=== PATIENT | male | born 1995 | race Caucasian/White ===

== ENCOUNTER 2018-01-14 20:09 | Emergency (ER) | payer OTHER, SELFPAY ==
[2018-01-14 20:15] VITALS: BP 159/90; PULSE 72; RESP 18; TEMP 36.8; O2SAT 100; BMI 22.8
--- NOTE | 2018-01-14 21:39 | ED_ITS ---
HPI - Extremity Problem <JONO Cade - Last Filed: 01/14/18 23:03> General Chief complaint: Extremity Problem,Nontraumatic Stated complaint: NUMBNESS OF LEGS HEADACHES JOINT ACHES LOST OF LEONEL Time Seen by Provider: 01/14/18 21:01 Source: patient Mode of arrival: ambulatory Limitations: no limitations History of Present Illness HPI Narrative: 22-year-old healthy male that is an everyday smoker here for complaint of having periodic episodes of tingling and numbness to bilateral lower extremities. he also reports having a periodic lower back pain as well. He denies any trauma to the lower back or to the pelvic girdle area. He denies any stressors or relievers of his symptoms. He also reports he has had increased tiredness over the past 3 months with some weight loss. He denies any fevers or chills. He is ambulatory to the emergency room. No loss of bladder or bowel control. he also reports that he has had some a small round areas of hair loss to his head and believes that he has alopecia areata a is currently waiting a dermatology visit next week for this. MD Complaint: other Related Data Home Medications Medication Instructions Recorded Confirmed MULTIVITAMIN 1 cap PO QDAY #0 cap 11/26/12 Previous Rx's Medication Instructions Recorded cephalexin [Keflex] 500 mg PO QID #28 cap 01/30/16 Allergies Allergy/AdvReac Type Severity Reaction Status Date / Time No Known Drug Allergies Allergy Verified 01/14/18 20:25 Review of Systems <JONO Cade - Last Filed: 01/14/18 23:03> Constitutional Denies chills, Denies fever(s), Denies lethargy and Denies weakness Eyes Denies change in vision, Denies eye discharge, Denies irritation and Denies loss of vision ENT Ears, Nose, Mouth, and Throat: Denies change in voice, Denies neck pain and Denies sore throat Cardiovascular Denies chest pain, Denies irregular heart rhythm, Denies lightheadedness, Denies palpitations, Denies dyspnea, Denies dyspnea on exertion and Denies orthopnea Respiratory Denies cough, Denies dyspnea, Denies dyspnea on exertion and Denies wheezing Gastrointestinal Gastrointestinal: Denies abdominal pain, Denies change in bowel habits, Denies diarrhea, Denies nausea and Denies vomiting Genitourinary Denies hematuria, Denies flank pain, Denies urinary incontinence and Denies urinary urgency Musculoskeletal Denies neck pain Comments: Tingling to bilateral lower extremities intermittentl Integumentary/Breasts Denies pruritus, Denies erythema, Denies rash and Denies wounds Neurologic Denies confusion, Denies loss of vision and Denies weakness Psychiatric Denies anxiety, Denies confusion, Denies depression, Denies homicidal ideation and Denies suicidal ideation Endocrine Denies palpitations Hematologic/Lymphatic Denies easy bruising Allergic/Immunologic Denies wheezing Exam <JONO Cade - Last Filed: 01/14/18 23:03> Initial Vital Signs Initial Vital Signs: Vital Signs Temperature 98.3 F 01/14/18 20:15 Pulse Rate 72 01/14/18 20:15 Respiratory Rate 18 01/14/18 20:15 Blood Pressure 159/90 H 01/14/18 20:15 Pulse Oximetry 100 01/14/18 20:15 Const General: cooperative and well developed Nutritional Appearance: well nourished Orientation: alert, awake, oriented x3 and not confused [facility] Head: normocephalic and atraumatic Ears: external ears normal and TM's normal bilaterally Nose: external nose normal and No nasal discharge Face and sinus: sinuses nontender, face symmetric, no sinus tenderness and No dry mucous membranes Mouth: oral mucosae normal and moist mucous membranes Teeth and gingiva: dentition normal Throat: tonsils normal and uvula midline Eyes General: appearance normal, both eyes and all related structures Eyelids: eyelids normal Conjunctivae: conjunctivae normal Sclera: sclerae normal Pupils: PERRL EOM: EOM intact bilaterally Neck Neck: normal visual inspection, trachea midline, No lymphadenopathy, No midline deformity and No JVD Lymphatic: No lymphedema Chest Chest: normal inspection of the chest Resp Effort & Inspection: normal respiratory effort, able to speak in complete sentences, no respiratory distress and no use of accessory muscles Auscultation: clear to auscultation bilaterally, no rales, no rhonchi and no wheezes Cardio Rate: regular rate Rhythm: regular rhythm Heart Sounds: no click, no gallops, no murmurs and no rubs Pulses: normal peripheral pulses GI Inspection: non-distended Palpation: soft, no hepatosplenomegaly, No guarding, No pulsatile mass and No tender Auscultation: normal bowel sounds Back/Spine/Pelvis Back: No CVA tenderness Cervical Spine: cervical ROM normal and No pain with cervical ROM Thoracic/Lumbar Spine: thoracic and lumbar spine normal to inspection Other: Lower back pain Skin General: no rashes or lesions noted, No jaundice and No petechiae Neuro General: alert, oriented x3, gait normal and no focal motor deficits Speech: speech normal Other: intermittent tingling and numbness to bilateral lower extrem Extrem General: full ROM, no clubbing, cyanosis or edema, no pedal edema and no calf tenderness Psych Appearance: well kempt Mental Status: mental status grossly normal Attitude: cooperative Thought Content: normal and suicidality Judgment: judgment good <Cally Patel DO - Last Filed: 01/15/18 18:37> Initial Vital Signs Initial Vital Signs: Vital Signs Temperature 98.3 F 01/14/18 20:15 Pulse Rate 72 01/14/18 20:15 Respiratory Rate 18 01/14/18 20:15 Blood Pressure 159/90 H 01/14/18 20:15 Pulse Oximetry 100 01/14/18 20:15 Course <JONO Cade - Last Filed: 01/14/18 23:03> Orders Ordered: ED Orders 01/14/18 21:13 EKG-12 Lead Stat 01/14/18 22:15 Complete Blood Count AUTO DIFF Stat Comprehensive Metabolic Panel Stat 01/14/18 22:53 Thyroid Stimulating Hormone Stat Vital Signs - 8 hr 01/14/18 20:15 Temperature 98.3 F Pulse Rate 72 Respiratory Rate 18 Blood Pressure 159/90 H Pulse Oximetry 100 <DO Jerel Hoang Last Filed: 01/15/18 18:37> Orders Ordered: ED Orders 01/14/18 21:13 EKG-12 Lead Stat 01/14/18 22:15 Complete Blood Count AUTO DIFF Stat Comprehensive Metabolic Panel Stat 01/14/18 22:53 Thyroid Stimulating Hormone Stat Vital Signs - 8 hr 01/14/18 20:15 Temperature 98.3 F Pulse Rate 72 Respiratory Rate 18 Blood Pressure 159/90 H Pulse Oximetry 100 MDM - Extremity (Nontraumatic) <JONO Cade - Last Filed: 01/14/18 23:03> Lab Data Result diagrams: 01/14/18 22:15 01/14/18 22:15 Lab Results 01/14/18 01/14/18 01/14/18 Range/Units 22:15 22:15 22:15 WBC 9.1 (4.5-11.0) X10^3/uL RBC 4.68 (4.5-5.9) X10^6/uL Hgb 14.9 (13.5-17.5) g/dL Hct 43.4 (41-53) % MCV 92.8 (80-100) fL MCH 32.0 (26-34) PG MCHC 34.4 (30-36) % RDW 12.9 (11.6-14.8) % Plt Count 197 (150-400) X10^3/uL Neut % (Auto) 45.5 L (50-75) % Lymph % (Auto) 36.9 (25-40) % Hendry % (Auto) 9.4 (3-14) % Eos % (Auto) 7.5 H (2-4) % Baso % (Auto) 0.7 (0-2) % Neut # (Auto) 4100 (8649-0095) /uL Sodium 141 (137-145) mmol/L Potassium 3.6 (3.4-5.1) mmol/L Chloride 102 (98-107) mmol/L Carbon Dioxide 27 (22-32) mmol/L BUN 20 (9-20) mg/dL Creatinine 0.80 (0.66-1.25) mg/dL Estimated GFR > 60.0 (>60) mL/min BUN/Creatinine Ratio 25.0 H (6-22) Glucose 100 (70-100) mg/dL Calcium 9.4 (8.4-10.2) mg/dL Total Bilirubin 0.3 (0.2-1.3) mg/dL AST 30 (17-59) IU/L ALT 30 (21-72) IU/L Alkaline Phosphatase 62 (38-126) U/L Total Protein 7.5 (6.3-8.2) g/dL Albumin 4.6 (3.5-5.0) g/dL Globulin 2.9 (1.7-4.1) g/dL Albumin/Globulin Ratio 1.6 (1.0-2.8) TSH 4.91 H (0.47-4.68) uIU/mL ECG Data Interpretation: EKG shows sinus bradycardia with ventricular rate of 56. No ST elevation or depression. No ectopy. Pr a little of 177. QRS duration 91. QT of 383. MDM Narrative Medical decision making narrative: CBC and Chem panel were obtained were unremarkable. EKG shows sinus rhythm with no ST elevation or depression. TSH was ordered however is still pending and will have patient follow up with primary care provider for further evaluation and results. If continued symptoms of tingling to his bilateral lower extremities may need advanced imaging to rule out lumbar radiculopathy or other complications. patient struck to follow up with primary care provider the next few days. For any worsening symptoms return to the emergency room. <Cally Patel, - Last Filed: 01/15/18 18:37> Lab Data Lab Results 01/14/18 01/14/18 01/14/18 Range/Units 22:15 22:15 22:15 WBC 9.1 (4.5-11.0) X10^3/uL RBC 4.68 (4.5-5.9) X10^6/uL Hgb 14.9 (13.5-17.5) g/dL Hct 43.4 (41-53) % MCV 92.8 (80-100) fL MCH 32.0 (26-34) PG MCHC 34.4 (30-36) % RDW 12.9 (11.6-14.8) % Plt Count 197 (150-400) X10^3/uL Neut % (Auto) 45.5 L (50-75) % Lymph % (Auto) 36.9 (25-40) % Hendry % (Auto) 9.4 (3-14) % Eos % (Auto) 7.5 H (2-4) % Baso % (Auto) 0.7 (0-2) % Neut # (Auto) 4100 (3480-1700) /uL Sodium 141 (137-145) mmol/L Potassium 3.6 (3.4-5.1) mmol/L Chloride 102 (98-107) mmol/L Carbon Dioxide 27 (22-32) mmol/L BUN 20 (9-20) mg/dL Creatinine 0.80 (0.66-1.25) mg/dL Estimated GFR > 60.0 (>60) mL/min BUN/Creatinine Ratio 25.0 H (6-22) Glucose 100 (70-100) mg/dL Calcium 9.4 (8.4-10.2) mg/dL Total Bilirubin 0.3 (0.2-1.3) mg/dL AST 30 (17-59) IU/L ALT 30 (21-72) IU/L Alkaline Phosphatase 62 (38-126) U/L Total Protein 7.5 (6.3-8.2) g/dL Albumin 4.6 (3.5-5.0) g/dL Globulin 2.9 (1.7-4.1) g/dL Albumin/Globulin Ratio 1.6 (1.0-2.8) TSH 4.91 H (0.47-4.68) uIU/mL Discharge Plan Departure Patient Disposition: Home Clinical Impression: Numbness and tingling of lower extremity Discharge Date/Time: 01/15/18 00:28 Interventions: ED Discharge Assessment Last Done: 01/15/18 00:09 Instructions: DI for Numbness/tingling Activity Restrictions/Additional Instructions: laboratory results and EKG today were unremarkable. Follow up with primary care provider in the next couple of days for re-evaluation. Thyroid study was obtained and is pending follow up with her primary care provider for results. if continued symptoms of numbness and tingling is to your lower extremities advanced imaging such as MRI might be needed for further evaluation For any worsening symptoms return to the emergency room. Prescriptions: No Action MULTIVITAMIN 1 cap PO QDAY Qty: 0 RF: 0 cephalexin [Keflex] 500 MG capsule 500 mg PO QID Qty: 28 RF: 0 Referrals: Henok Lomax MD [Primary Care Provider] - <Cally Patel DO - Last Filed: 01/15/18 18:37> Cosign ED Attending Cristyature Attestation: I was immediately available in the department for consultation. Documentation has been reviewed. I agree with assessment and plan.
[2018-01-14 22:35] LABS: Add Manual Diff / Slide Review NO; Basophils Percent Auto 0.7 % (0-2); Eosinophils Percent Auto 7.5 % (2-4); Hematocrit 43.4 % (41-53); Hemoglobin 14.9 g/dL (13.5-17.5); Lymphocytes Percent Auto 36.9 % (25-40); Mean Corpuscular HGB Conc 34.4 % (30-36); Mean Corpuscular Volume 92.8 fL (80-100); Monocytes Percent Auto 9.4 % (3-14); Neutrophils Absolute Auto 4100 /uL (3000-5900); Neutrophils Percent Auto 45.5 % (50-75); Platelet Count 197 X10^3/uL (150-400); Red Blood Cell Count 4.68 X10^6/uL (4.5-5.9); Red Cell Distribution Width 12.9 % (11.6-14.8); White Blood Cell Count 9.1 X10^3/uL (4.5-11.0)
[2018-01-14 22:48] LABS: Alanine Aminotransferase 30 IU/L (21-72); Albumin 4.6 g/dL (3.5-5.0); Albumin Globulin Ratio 1.6 (1.0-2.8); Alkaline Phosphatase 62 U/L (38-126); Aspartate Aminotransferase 30 IU/L (17-59); Bilirubin Total 0.3 mg/dL (0.2-1.3); Blood Urea Nitrogen 20 mg/dL (9-20); Calcium 9.4 mg/dL (8.4-10.2); Carbon Dioxide 27 mmol/L (22-32); Chloride 102 mmol/L (98-107); Estimated Glomerular Filt Rate > 60.0 mL/min (>60); Globulin 2.9 g/dL (1.7-4.1); Glucose 100 mg/dL (70-100); HEMOLYSIS < 15 (0-50); Potassium 3.6 mmol/L (3.4-5.1); Sodium 141 mmol/L (137-145); Total Protein 7.5 g/dL (6.3-8.2)
[2018-01-14 23:00] VITALS: BP 118/76; PULSE 67; RESP 17; O2SAT 99
[2018-01-14 23:40] LABS: Thyroid Stimulating Hormone 4.91 uIU/mL (0.47-4.68)
[2018-01-15] VITALS: BP 124/77; PULSE 66; RESP 16; O2SAT 98
[2018-01-15 00:09] VITALS: BP 124/77; PULSE 63; RESP 16; TEMP 36.3; O2SAT 99
--- NOTE | 2018-01-15 00:23 | PC.NURSE ---
Alopecia to wisdom and head with weakness to legs, fatigue, and 15lb weight loss over the past few months.
== END 2018-01-15 00:28 | disposition home or self-care (01) ==
PROVIDERS: Emergency Provider Nurse Practitioner Family; PCP Family Medicine
DX: R20.0 Anesthesia of skin (principal)
CPT/HCPCS: 36415; 80053; 84443; 85025; 93005; 99282; 99284

== ENCOUNTER → 2018-01-21 15:23 | Outpatient (CLI) | payer OTHER, SELFPAY ==
--- NOTE | 2018-01-21 15:24 | DI.RAD.S_ITS ---
PROCEDURE: XR LUMBAR SPINE 2-3V INDICATIONS: right leg weekness TECHNIQUE: 3 views of the lumbar spine were acquired. COMPARISON: None. FINDINGS: Bones: No fracture or focal osseous destruction. Disc space is grossly preserved. Alignment is anatomic. There is mild lower facet disease. Soft tissues: Overlying bowel gas pattern is normal. No suspicious soft tissue calcifications. IMPRESSION: Mild lower facet disease. Otherwise, negative examination as above Dictated by: Chris Duque M.D. on 01/21/2018 at 15:54 Approved by: Chris Duque M.D. on 01/21/2018 at 15:55
[2018-01-21 17:32] LABS: Urine N gonorrhoeae NOT DETECTED
[2018-01-21 17:38] LABS: Urine Chlamydia NOT DETECTED
[2018-01-23 15:38] LABS: Hepatitis A Antibody IgM NONREACTIVE (NONREACTIVE); Hepatitis Acute Panel Interp 0.02 (NONREACTIVE); Hepatitis B Core Antibody IgM NONREACTIVE (NONREACTIVE); Hepatitis B Surface Antigen NONREACTIVE (NONREACTIVE); Hepatitis C Antibody NONREACTIVE
[2018-01-28 13:06] LABS: HIV-1/2 confirmation Not Detected (Not detected)
== END ==
PROVIDERS: PCP Family Medicine; Visit Provider Family Medicine
DX: Z11.3 Encounter for screening for infections with a predominantly sexual mode of transmission (principal); M62.81 Muscle weakness (generalized); R20.0 Anesthesia of skin
CPT/HCPCS: 36415; 72100; 80074; 87491; 87535; 87591

== ENCOUNTER → 2018-12-09 11:51 | Outpatient (CLI) | payer OTHER, SELFPAY ==
[2018-12-09 12:26] LABS: Add Manual Diff / Slide Review NO; Basophils Absolute Auto 0 /uL (0-100); Basophils Percent Auto 0.8 % (0-2); Eosinophils Absolute Auto 300 /uL (0-450); Eosinophils Percent Auto 5.8 % (2-4); Hematocrit 44.8 % (41-53); Hemoglobin 15.3 g/dL (13.5-17.5); Lymphocytes Absolute Auto 1800 /uL (1100-4500); Lymphocytes Percent Auto 31.6 % (25-40); Mean Corpuscular HGB Conc 34.1 % (30-36); Mean Corpuscular Hemoglobin 31.4 PG (26-34); Mean Corpuscular Volume 91.8 fL (80-100); Monocytes Absolute Auto 500 /uL (0-900); Neutrophils Absolute Auto 3100 /uL (1500-7000); Neutrophils Percent Auto 53.8 % (50-75); Platelet Count 193 X10^3/uL (150-400); Red Blood Cell Count 4.87 X10^6/uL (4.5-5.9); Red Cell Distribution Width 12.9 % (11.6-14.8); White Blood Cell Count 5.8 X10^3/uL (4.5-11.0)
[2018-12-09 12:41] LABS: Erythrocyte Sedimentation Rate 1 MM/HR (0-15)
[2018-12-09 13:43] LABS: Alanine Aminotransferase 21 IU/L (21-72); Albumin Globulin Ratio 1.4 (1.0-2.8); Alkaline Phosphatase 63 U/L (38-126); Aspartate Aminotransferase 32 IU/L (17-59); BUN Creatinine Ratio 38.6 (6-22); Bilirubin Total 0.5 mg/dL (0.2-1.3); Blood Urea Nitrogen 27 mg/dL (9-20); Calcium 10.1 mg/dL (8.4-10.2); Carbon Dioxide 29 mmol/L (22-32); Chloride 100 mmol/L (98-107); Estimated Glomerular Filt Rate > 60.0 mL/min (>60); Globulin 3.6 g/dL (1.7-4.1); Glucose 90 mg/dL (70-100); HEMOLYSIS < 15 (0-50); Potassium 4.5 mmol/L (3.4-5.1); Sodium 141 mmol/L (137-145); Total Protein 8.6 g/dL (6.3-8.2)
[2018-12-09 13:48] LABS: C-Reactive Protein Quant < 0.5 mg/dL (<1.0); Rheumatoid Factor < 8.6 IU/mL (<12.0)
[2018-12-09 14:09] LABS: TSH w/ Reflex to FT4 3.13 uIU/mL (0.47-4.68)
[2018-12-12 11:49] LABS: CCP Antibody (IgG) < 16 Units (< 20)
[2018-12-12 14:33] LABS: ANA Screen, IFA NEGATIVE (NEGATIVE)
[2018-12-12 20:26] LABS: (tTG) Ab, IgA < 1 U/mL
== END ==
PROVIDERS: PCP Family Medicine; Visit Provider Family Medicine
DX: H53.9 Unspecified visual disturbance (principal); R41.3 Other amnesia; L63.0 Alopecia (capitis) totalis
CPT/HCPCS: 36415; 80053; 82784; 83516; 84443; 85025; 85651; 86038; 86140; 86200; 86255; 86430

== ENCOUNTER → 2018-12-16 06:17 | Outpatient (CLI) | payer OTHER, SELFPAY ==
--- NOTE | 2018-12-16 06:19 | DI.MRI.S_ITS ---
PROCEDURE: MR HEAD/BRAIN WO CON INDICATIONS: visual changes and memory changes TECHNIQUE: Noncontrast axial T1 spin echo, axial T2 fast spin echo, sagittal and axial FLAIR, coronal T2 fast spin echo, axial gradient echo, axial diffusion and ADC through the brain. COMPARISON: None. FINDINGS: Image quality: Excellent. CSF Spaces: Basal cisterns are patent. No extra-axial fluid collections. Ventricles are normal in size and shape. Brain: No intracranial masses or hemorrhage. Srinivasan/white matter interface is normal. Brainstem appears normal. Diffusion-weighted images demonstrate no acute ischemic insult. No chronic ischemic insults. Normal intravascular flow voids are present. Skull and face: Calvarium has normal marrow signal. Orbits appear normal. Sinuses: Bilateral maxillary sinus and ethmoid sinus mucoperiosteal thickening. Frontal sinus mucoperiosteal thickening. Small left maxillary sinus mucus retention cyst. IMPRESSION: 1. Chronic sinus disease. 2. Normal appearing brain parenchyma. No evidence of acute stroke, hemorrhage, or mass. Dictated by: Minh Appiah M.D. on 12/16/2018 at 9:24 Approved by: Minh Appiah M.D. on 12/16/2018 at 9:26
== END ==
PROVIDERS: PCP Family Medicine; Visit Provider Family Medicine
DX: H53.9 Unspecified visual disturbance (principal); R41.3 Other amnesia; J32.8 Other chronic sinusitis
CPT/HCPCS: 70551

== ENCOUNTER → 2019-05-14 08:44 | Outpatient (CLI) | payer OTHER, SELFPAY ==
[2019-05-14 11:04] LABS: Erythrocyte Sedimentation Rate 1 MM/HR (0-15)
[2019-05-14 12:09] LABS: Ferritin 39 ng/mL (18-464)
== END ==
PROVIDERS: PCP Family Medicine; Referring Provider Physician Assistant Medical; Visit Provider Physician Assistant Medical
DX: L63.8 Other alopecia areata (principal)
CPT/HCPCS: 36415; 82728; 85651

== ENCOUNTER 2019-08-18 09:31 | Emergency (ER) | payer OTHER, SELFPAY ==
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
--- NOTE | 2019-08-18 09:50 | DI.RAD.S_ITS ---
PROCEDURE: XR KNEE RT 3V INDICATIONS: pain TECHNIQUE: 3 views of the knee were acquired. COMPARISON: None. FINDINGS: Bones: No fractures or dislocations. No suspicious bony lesions. Soft tissues: No joint effusion. No suspicious soft tissue calcifications. IMPRESSION: No acute right knee fracture or dislocation. Dictated by: Jaime Rees M.D. on 08/18/2019 at 10:36 Approved by: Jaime Rees M.D. on 08/18/2019 at 10:42
[2019-08-18 09:51] VITALS: BP 130/80; PULSE 58; RESP 12; TEMP 36.6; O2SAT 100
[2019-08-18 10:30] VITALS: PULSE 68
--- NOTE | 2019-08-18 10:31 | PC.NURSE ---
No external s/s of trauma to right leg
== END 2019-08-18 10:41 | disposition home or self-care (01) ==
PROVIDERS: Emergency Provider Emergency Medicine; PCP Family Medicine
DX: S89.91XA Unspecified injury of right lower leg, initial encounter (principal)
CPT/HCPCS: 73562; 99283

== ENCOUNTER → 2019-08-27 11:10 | Outpatient (CLI) | payer OTHER, SELFPAY ==
--- NOTE | 2019-08-27 11:11 | DI.MRI.S_ITS ---
PROCEDURE: MR KNEE RT WO CON INDICATIONS: pain and immobility after injury/H/O meniscal repair TECHNIQUE: Noncontrast sagittal PD fast spin echo and T2 fast spin echo with fat saturation, sagittal 3-D FLASH with fat saturation; coronal T1 spin echo and PD fast spin echo with fat saturation, and axial PD fast spin echo with fat saturation through the knee. COMPARISON: None. FINDINGS: Image quality: Excellent. Menisci: Truncated appearance involving body and posterior horn of medial meniscus is seen suggestive of prior partial meniscectomy. No evidence of recurrent tear is seen. There is no evidence of focal lateral meniscal tear. The meniscal root ligaments appear intact. Cruciate ligaments: The anterior and posterior cruciate ligaments appear intact. Medial structures: Low grade MCL sprain is seen. The posterior oblique ligament, semimembranosus tendon insertions, oblique popliteal ligament, and meniscocapsular junction appear intact. Visualized portions of the pes anserinus tendons appear normal. No abnormal bursal fluid. Lateral structures: The lateral collateral ligament, long and short heads of the biceps femoris tendon appear intact. The popliteus tendon appears normal; the popliteofibular ligament appears intact. The posterosuperior and anteroinferior popliteomeniscal fascicles appear intact. The arcuate and fabellofibular ligaments appear intact, on either side of the lateral inferior geniculate artery. Iliotibial band appears normal. Anterior structures: The quadriceps and patellar tendons appear intact. Patellar alignment is normal. No femoral trochlear dysplasia or ventral trochlear prominence. No edema in the infrapatellar fat pad. Bones and cartilage: No bone marrow contusions or fractures. Low-grade chondromalacia involving weight-bearing portion of medial femoral condyle is seen. Articulating cartilages in the lateral femoral-tibial compartment and patellofemoral compartment are intact. Joint space: There is small amount of knee joint fluid. No Rich's cyst. Normal appearing synovial plicae are incidentally noted. IMPRESSION: 1. Evidence of prior partial medial meniscectomy. No evidence of gross recurrent tear. No evidence of focal lateral meniscal tear. 2. Low-grade MCL sprain. 3. Cruciate ligaments are intact. 4. 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 No marrow edema. No fracture or dislocation. Small amount of joint effusion, no gross loose body. Dictated by: Jaime Rees M.D. on 08/27/2019 at 13:28 Approved by: Jaime Rees M.D. on 08/27/2019 at 13:30
== END ==
PROVIDERS: PCP Family Medicine; Referring Provider Family Medicine; Visit Provider Family Medicine
DX: S89.91XA Unspecified injury of right lower leg, initial encounter (principal); S83.411A Sprain of medial collateral ligament of right knee, initial encounter; M94.261 Chondromalacia, right knee; M25.461 Effusion, right knee; X58.XXXA Exposure to other specified factors, initial encounter
CPT/HCPCS: 73721

== ENCOUNTER → 2023-06-20 09:10 | Outpatient (CLI) | payer OTHER, SELFPAY | PROVIDERS: PCP Family Medicine; Visit Provider Student in an Organized Health Care Education/Training Program | DX: J02.9 Acute pharyngitis, unspecified (principal) | CPT/HCPCS: 87070 ==

== ENCOUNTER → 2024-08-17 13:00 | Outpatient (CLI) | payer OTHER, SELFPAY ==
--- NOTE | 2024-08-17 13:02 | DI.RAD.S_ITS ---
PROCEDURE: XR HAND RT MIN 3V INDICATIONS: Smashed-pain 4th-5th metacarpal TECHNIQUE: 3 views of the hand(s) acquired. COMPARISON: None. FINDINGS: Bones: No fractures or dislocations. Carpal bones are normally aligned. No suspicious bony lesions. Soft tissues: No suspicious soft tissue calcifications. IMPRESSION: No acute right hand fracture or dislocation. Dictated by: Jaime Rees M.D. on 08/17/2024 at 13:24 Approved by: Jaime Rees M.D. on 08/17/2024 at 13:25
== END ==
PROVIDERS: PCP Family Medicine; Referring Provider Nurse Practitioner Family; Visit Provider Nurse Practitioner Family
DX: S60.229A Contusion of unspecified hand, initial encounter (principal); X58.XXXA Exposure to other specified factors, initial encounter
CPT/HCPCS: 73130